=== PATIENT | female | born 2000 | race Caucasian/White ===

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

== ENCOUNTER 2024-09-23 15:04 | Emergency (ER) | payer SELFPAY | END 2024-09-23 15:38 | disposition home or self-care (01) | LOC: MADERS 15:04 | DX: J02.0 Streptococcal pharyngitis (principal); F17.290 Nicotine dependence, other tobacco product, uncomplicated | CPT/HCPCS: 99283 ==